=== PATIENT | male | born 1950 | race Caucasian/White ===

== ENCOUNTER → 2019-08-05 | Outpatient (CLI) | payer OTHER ==
[~2019-08-05] MED LIST: ASPI-1026 PO; DOXY100C40 PO; DOXY100T21 PO; FLUO20CA30 PO
== END | disposition home or self-care (01) ==
LOC: OIH 14:41
PROVIDERS: ATTEND Internal Medicine Cardiovascular Disease
DX: Z13.6 Encounter for screening for cardiovascular disorders (principal)
CPT/HCPCS: 75571